=== PATIENT | female | born 1950 | race Caucasian/White ===

== ENCOUNTER → 2017-01-07 15:45 | Outpatient (CLI) | payer MEDICARE, MEDICAID ==
[2009-09-16 09:10] VITALS: BMI 35.7
== END | disposition home or self-care (01) ==
LOC: D.MRI 15:00
DX: M54.12 Radiculopathy, cervical region (principal); M54.16 Radiculopathy, lumbar region

== ENCOUNTER → 2018-12-09 16:01 | Outpatient (CLI) | payer MEDICARE, MEDICAID ==
[2009-09-16 09:10] VITALS: BMI 35.7
== END | disposition home or self-care (01) ==
LOC: D.LABREF 16:01
PROVIDERS: ATTEND Orthopaedic Surgery
DX: M19.011 Primary osteoarthritis, right shoulder (principal)

== ENCOUNTER → 2019-02-18 16:52 | Outpatient (CLI) | payer MEDICARE, MEDICAID ==
[2009-09-16 09:10] VITALS: BMI 35.7
== END | disposition home or self-care (01) ==
LOC: D.LABREF 16:52
PROVIDERS: ATTEND Orthopaedic Surgery
DX: M19.011 Primary osteoarthritis, right shoulder (principal)